=== PATIENT | male | born 1965 | race Caucasian/White ===

== ENCOUNTER 2016-11-24 05:43 | Day surgery (SDC) | payer BC ==
[2016-11-24] MEDS ORDERED: Midazolam 1 MG/ML 2 ML SDV ONE (06:15)
[2016-11-24] MEDS ORDERED: fentaNYL 100 MCG/2 ML SDV ONE (06:15)
[2016-11-24] MEDS ORDERED: Sodium Chloride 0.9% 10 ML Syringe FLUSH PRN (06:21)
[2016-11-24] MEDS ORDERED: Dextrose 5%-0.45% NaCl 1,000 ML IV SCH (06:30)
[2016-11-24] MEDS ORDERED: fentaNYL 100 MCG/2 ML SDV IV ONE ×3 (06:52→16:41)
[2016-11-24] MEDS ORDERED: Midazolam 1 MG/ML 2 ML SDV IV ONE ×3 (06:53→16:41)
[2016-11-24 09:18] VITALS: BP 127/87
--- NOTE | 2016-11-24 10:35 | OR ---
DATE: 11/24/2016 PROCEDURE: Esophagogastroduodenoscopy and multiple pinch biopsies. INSTRUMENT USED: GIF-H180 Olympus video panendoscope. PREMEDICATIONS: No oral topical anesthesia used. Fentanyl 100 mcg intravenous, Versed 2 mg intravenous. The procedure was done under pulse oximetry, BP recording, and shelter monitor. INDICATION: The patient with persistent long-term heartburn and associated chest discomfort, unexplained and not responsive to medical measures. Esophagogastroduodenoscopy is performed for detection of any active erosive lesions, Bender esophagus and/or malignancy also under consideration, H. pylori status to be determined, endoscopic hemostasis therapy if needed. DESCRIPTION OF PROCEDURE: The scope was passed with ease. Adequate visualization of the esophagus was made from proximal to distal areas. No upper esophageal lesions identified. No distal esophageal stricture. No uphill or downhill esophageal varices. No Zoë-Savage tear. No evidence of erosive esophagitis by Gonzales criteria. No esophageal polyp or tumor mass identified. Z-line was seen at around 40 cm distal to the oral verge, configuration consistent with grade 1 by ZAP classification. No proximal gastric varices noted. Gastric fundus examination by retroflexion showed no polypoid lesions. No gastric ulcer, malignant mass, or vascular ectasia identified. Duodenal bulb showed no ulcer. Visualized second part of the duodenum was unremarkable. Multiple pinch biopsies were taken from the gastric antrum and proximal body and sent for PyloriTek test for H. pylori, and if negative in an hour, tissue is to be sent for histopathology. No bleeding was noted from any of the visualized areas at the completion of examination. Photographs were taken of the duodenal bulb, gastric antrum, fundus, and distal esophagus. IMPRESSION: Normal study. The patient tolerated the procedure well. [facility] /[id number]
== END 2016-11-24 09:00 | disposition home or self-care (01) ==
LOC: DL.ENDO 05:43
PROVIDERS: ATTEND Internal Medicine Gastroenterology
DX: R12 Heartburn (principal); F17.210 Nicotine dependence, cigarettes, uncomplicated; K57.30 Diverticulosis of large intestine without perforation or abscess without bleeding; Z88.5 Allergy status to narcotic agent
CPT/HCPCS: 43239; 87077; J2250; J3010; J7042

== ENCOUNTER → 2016-12-02 | Day surgery (SDC) | payer BC ==
[~2016-12-02] MED LIST: Dextrose 5%-0.45% NaCl 1,000 ML IV SCH; Midazolam 1 MG/ML 2 ML SDV IV ONE; Midazolam 1 MG/ML 2 ML SDV ONE; Sodium Chloride 0.9% 10 ML Syringe FLUSH PRN; fentaNYL 100 MCG/2 ML SDV IV ONE; fentaNYL 100 MCG/2 ML SDV ONE
--- NOTE | 2016-12-02 08:11 | OR ---
{null, DATE: 12/02/2016 PROCEDURES: Total colonoscopy and multiple cold snare polypectomies. INSTRUMENT USED: CF-H180AL Olympus video colonoscope. PREMEDICATIONS: Fentanyl 150 mcg intravenous, Versed 4.5 mg intravenous. Nasal 2 L O2 cannula. The procedure was done under pulse oximetry, BP recording, and conveyor monitor. INDICATION: The patient with left-sided lower abdominal pain and rectal bleeding. Colonoscopic examination is done for detection of any polypoid lesions and removal, endoscopic hemostasis therapy if needed. DESCRIPTION OF PROCEDURE: Initial rectal exam was unremarkable. Rigid anoscopy was normal. The colonoscope was passed with ease. In the proximal rectum, 3 mm sized benign- appearing polyp was noted, photograph was taken, cold snare polypectomy was done, a few scattered diverticula were noted with some deformity. The colonoscope was passed with ease up to the ileocecal area, photographs were taken of the normal-appearing cecum, identified by landmarks of appendiceal orifice and double-bulged ileocecal folds. No bleeding was noted from any of the visualized areas at the commencement of the examination. No stricture. No vascular ectasia. No large isolated ulcerations seen. No evidence of diffuse inflammatory bowel disease in the form of friability, contact bleeding, or ulcerations. Probing the proximal sides of folds and flexures, using adequate distention and clearing of the stool material, withdrawal of the scope was made. In the descending colon, 3 mm sized benign-appearing polyp was noted, cold snare polypectomy was done, the tissue was retrieved and sent for histopathology. No bleeding was noted from any of the visualized areas at the completion of examination. IMPRESSION: 1. Diverticulosis. 2. Multiple diminutive colonic polyps. The patient tolerated the procedure well. [facility] /[id number] }
[2016-12-02 09:43] VITALS: BP 145/93
== END | disposition home or self-care (01) ==
LOC: DL.ENDO 05:48
PROVIDERS: ATTEND Internal Medicine Gastroenterology
DX: D12.8 Benign neoplasm of rectum (principal); K57.30 Diverticulosis of large intestine without perforation or abscess without bleeding; K52.9 Noninfective gastroenteritis and colitis, unspecified; F17.210 Nicotine dependence, cigarettes, uncomplicated; Z88.5 Allergy status to narcotic agent; Z79.82 Long term (current) use of aspirin; Z79.899 Other long term (current) drug therapy; Z98.890 Other specified postprocedural states
CPT/HCPCS: 45385; J2250; J3010; J7042

== ENCOUNTER 2022-04-26 05:33 | Emergency (ER) | payer SELFPAY ==
[2022-04-26] MEDS ORDERED: Heparin Sodium/0.45% NaCl 500 ML IV ONE (19:00)
[2022-04-26] MEDS ORDERED: Heparin Sodium 5,000 Units/ML Vial IV ONE (19:00)
[2022-04-26] MEDS ORDERED: Aspirin 81 MG Tab.Chew PO ONE (19:00)
[2022-04-26] MEDS ORDERED: Clopidogrel 75 MG Tab PO ONE (19:00)
[2022-05-20 14:19] LABS: ANION GAP 13.1 mEq/L (7-13); CHLORIDE,CL 103 mmol/L (98-107); ESTIMATED GFR 63 mL/min (>=60); SODIUM,NA 140 mmol/L (136-145)
[2022-05-20 14:21] LABS: PTT,PARTIAL THROMBOPLSTIN TIME 21.1 SEC (22.0-34.0)
== END 2022-04-26 19:34 ==
LOC: DL.ED 05:33
DX: I21.4 Non-ST elevation (NSTEMI) myocardial infarction (principal); R00.1 Bradycardia, unspecified
CPT/HCPCS: 36415; 71045; 80053; 83735; 84484; 85025; 85610; 85730; 93005; 93010; 96365; 96376; 99285; A9270; J1644

== ENCOUNTER 2025-04-27 05:09 | Emergency (ER) | payer OTHER ==
[2025-04-27 05:19] VITALS: BP 149/94; PULSE 86
[2025-04-27] MEDS ORDERED: Ketorolac 30 MG/ML SDV IVPUSH ONE (05:27)
[2025-04-27] MEDS: Ketorolac 30 MG/ML SDV IM ONE (05:35)
== END 2025-04-27 06:12 | disposition home or self-care (01) ==
LOC: DL.ED 05:09
DX: S86.911A Strain of unspecified muscle(s) and tendon(s) at lower leg level, right leg, initial encounter (principal); I25.10 Atherosclerotic heart disease of native coronary artery without angina pectoris; E78.00 Pure hypercholesterolemia, unspecified; I10 Essential (primary) hypertension; F17.210 Nicotine dependence, cigarettes, uncomplicated; Z88.5 Allergy status to narcotic agent; Z79.899 Other long term (current) drug therapy; W18.39XA Other fall on same level, initial encounter; Y93.89 Activity, other specified
CPT/HCPCS: 73564; 96372; 99283; J1885; 99282